=== PATIENT | female | born 1960 | race Caucasian/White ===

== ENCOUNTER → 2019-03-13 | Outpatient (CLI) | payer BC ==
--- NOTE | 2019-03-13 11:53 | MM ---
Reason for exam: clinical finding. Last mammogram was performed 17 years and 4 months ago. History: Patient is postmenopausal. Family history of breast cancer in 2 maternal aunts. Benign stereotactic core biopsy of the right breast, October 10, 1998. Benign excisional biopsy of the right breast, June 07, 1998. Cyst aspiration of the left breast, 1998. Core biopsy of the right breast. Indicated problem(s): lump or thickening in the left breast. Physical Findings: Nurse Summary: 1 x 1cm nodule in the left breast at 9 o'clock and a 3 x 3cm nodule in the left breast at 12 o'clock (nurse ts). MG 3D Diag Mammo W/Cad [facility]O Bilateral CC, MLO, and LM view(s) were taken. Prior study comparison: November 21, 2001, bilateral diagnostic mammogram. September 16, 1998, right breast diagnostic mammogram. The breast tissue is heterogeneously dense. This may lower the sensitivity of mammography. Numerous bilateral predominantly layering calcifications are likely benign. 6 month bilateral follow up advised. No discrete abnormality at the sites of palpable abnormality left breast. These results were verbally communicated with the patient and result sheet given to the patient on 03/13/19. ASSESSMENT: Incomplete: need additional imaging evaluation, BI-RAD 0 RECOMMENDATION: Ultrasound of the left breast. Manage patient on a clinical basis.
--- NOTE | 2019-03-13 11:55 | USB ---
Reason for exam: additional evaluation requested from abnormal screening. History: Patient is postmenopausal. Family history of breast cancer in 2 maternal aunts. Benign stereotactic core biopsy of the right breast, October 10, 1998. Benign excisional biopsy of the right breast, June 07, 1998. Cyst aspiration of the left breast, 1998. Core biopsy of the right breast. US Breast Limited LT Left limited breast ultrasound including focal area of concern, retroareolar and axilla demonstrates a 3.3 x 1.0 x 2.8cm oval, cystic lesion at 9 o'clock BB, a 1.0 x 0.7 x 0.8cm oval, cystic lesion at 9 o'clock, a 0.7 x 0.5 x 0.8cm oval, cystic lesion at 11 o'clock and a 2.5 x 1.6 x 2.1cm oval, cystic lesion at 12 o'clock BB. These results were verbally communicated with the patient and result sheet given to the patient on 03/13/19. ASSESSMENT: Benign, BI-RAD 2 RECOMMENDATION: Follow-up diagnostic mammogram of both breasts in 6 months.
== END | disposition home or self-care (01) ==
LOC: RADMAMWWP 09:08
PROVIDERS: ATTEND Pediatrics
DX: R92.8 Other abnormal and inconclusive findings on diagnostic imaging of breast (principal); N63.20 Unspecified lump in the left breast, unspecified quadrant
CPT/HCPCS: 77062; 77066

== ENCOUNTER → 2020-01-01 | Outpatient (CLI) | payer BC ==
--- NOTE | 2020-01-01 11:49 | MM ---
Reason for exam: follow-up at short interval from prior study. Last mammogram was performed 10 months ago. History: Patient is postmenopausal. Family history of breast cancer in 2 maternal aunts. Benign stereotactic core biopsy of the right breast, October 10, 1998. Benign excisional biopsy of the right breast, June 07, 1998. Cyst aspiration of the left breast, 1998. Core biopsy of the right breast. Physical Findings: Nurse Summary: 2 x 2cm nodule in the left breast at 12 o'clock and a 2 x 1cm nodule in the left breast at 9 o'clock (nurse ts). MG 3D Diag Mammo W/Cad [facility]ENC[facility]O Bilateral CC, MLO, and XCCL view(s) were taken. Prior study comparison: March 13, 2019, bilateral MG 3d diag mammo w/cad [facility]. The breast tissue is heterogeneously dense. This may lower the sensitivity of mammography. Diffuse calcifications. There is chronic nodularity bilaterally. These results were verbally communicated with the patient and result sheet given to the patient on 01/01/20. ASSESSMENT: Benign, BI-RAD 2 RECOMMENDATION: Routine screening mammogram of both breasts in 2 months. Back on schedule for February 2020. Manage patient on a clinical basis.
== END | disposition home or self-care (01) ==
LOC: RADMAMWWP 09:47
PROVIDERS: ATTEND Pediatrics
DX: R92.8 Other abnormal and inconclusive findings on diagnostic imaging of breast (principal)
CPT/HCPCS: 77062; 77066

== ENCOUNTER → 2021-01-10 | Outpatient (CLI) | payer BC ==
--- NOTE | 2021-01-14 10:42 | MM ---
Reason for exam: screening (asymptomatic). Last mammogram was performed 1 year ago. History: Patient is postmenopausal. Family history of breast cancer in maternal aunt at age 60 and breast cancer in paternal aunt at age 60. Benign stereotactic core biopsy of the right breast, October 10, 1998. Benign excisional biopsy of the right breast, June 07, 1998. Cyst aspiration of the left breast, 1998. Core biopsy of the right breast. Physical Findings: A clinical breast exam by your physician is recommended on an annual basis and results should be correlated with mammographic findings. MG 3D Screening Mammo W/Cad Bilateral CC and MLO view(s) were taken. Prior study comparison: January 01, 2020, bilateral MG 3d diag mammo w/cad [facility]. March 13, 2019, bilateral MG 3d diag mammo w/cad [facility]. The breast tissue is extremely dense which could obscure a lesion on mammography. Regional, diffuse and grouped calcifications are present bilaterally. More tightly clustered central inner right CC view and posterior inferior left MLO view. Magnification views recommended. Sampling may be needed. ASSESSMENT: Incomplete: need additional imaging evaluation, BI-RAD 0 RECOMMENDATION: Special view mammogram of both breasts. (magnification) [facility] will attempt to contact patient to return for supplemental views.
== END | disposition home or self-care (01) ==
LOC: RADMAMWWP 13:51
PROVIDERS: ATTEND Pediatrics
DX: Z12.31 Encounter for screening mammogram for malignant neoplasm of breast (principal)
CPT/HCPCS: 77063; 77067

== ENCOUNTER → 2021-01-21 | Outpatient (CLI) | payer BC ==
--- NOTE | 2021-01-22 08:16 | MM ---
Reason for exam: additional evaluation requested from abnormal screening. Last mammogram was performed less than 1 month ago. History: Patient is postmenopausal. Family history of breast cancer in maternal aunt at age 60 and breast cancer in paternal aunt at age 60. Benign stereotactic core biopsy of the right breast, October 10, 1998. Benign excisional biopsy of the right breast, June 07, 1998. Cyst aspiration of the left breast, 1998. Core biopsy of the right breast. Physical Findings: Nurse Summary: 2cm nodule in the left breast at 12 o'clock nipple and 9 o'clock (nurse dw). MG 3D Work Up W/Cad [facility]O Bilateral CC and MLO view(s) were taken. Prior study comparison: January 10, 2021, bilateral MG 3d screening mammo w/cad. January 01, 2020, bilateral MG 3d diag mammo w/cad [facility]. The breast tissue is heterogeneously dense. This may lower the sensitivity of mammography. Finding: There are increased, fine, intermediate concern, suspicious grouped/clustered calcifications in the lower inner quadrant, middle position of the right breast 4cm from the nipple. There are suspicious increased calcifications in the left upper inner quadrant, posterior position, 5cm from the nipple. New finding since January 10, 2021 and January 01, 2020. These results were verbally communicated with the patient and result sheet given to the patient on 01/21/21. ASSESSMENT: Suspicious, BI-RAD 4 RECOMMENDATION: Stereotactic core biopsy of both breasts. (x 2) Called Dr. Oliva's office with mammographic findings and has scheduled an appointment for the patient for 03/12/20 at 4:[address] Santos. Biopsy scheduled for 02/17/21 at 9:30. PRELIMINARY REPORT CALLED AND FAXED TO DR. SANTOS ON 01/21/21.
--- NOTE | 2021-01-22 08:23 | USB ---
Reason for exam: additional evaluation requested from abnormal screening. History: Patient is postmenopausal. Family history of breast cancer in maternal aunt at age 60 and breast cancer in paternal aunt at age 60. Benign stereotactic core biopsy of the right breast, October 10, 1998. Benign excisional biopsy of the right breast, June 07, 1998. Cyst aspiration of the left breast, 1998. Core biopsy of the right breast. US Breast Workup Limited [facility] Right limited breast ultrasound including focal area of concern, retroareolar and axilla demonstrates no cystic or solid lesion seen. Left limited breast ultrasound including focal area of concern, retroareolar and axilla demonstrates a 1.5 x 1.2 x 0.7cm mixed lesion at 9 o'clock and a 1.2 x 1.2 x 0.8cm mixed lesion at 12 o'clock, cyst versus other etiology. These results were verbally communicated with the patient and result sheet given to the patient on 01/21/21. ASSESSMENT: Probably benign, BI-RAD 3 RECOMMENDATION: Ultrasound of the left breast in 6 months. (x 2) Called Dr. Oliva's office with mammographic findings and has scheduled an appointment for the patient for 03/12/20 at 4:[address] Santos. Biopsy scheduled for 02/17/21 at 9:30. PRELIMINARY REPORT CALLED AND FAXED TO DR. SANTOS ON 01/21/21.
== END | disposition home or self-care (01) ==
LOC: RADMAMWWP 13:53
PROVIDERS: ATTEND Pediatrics
DX: N64.89 Other specified disorders of breast (principal); R92.1 Mammographic calcification found on diagnostic imaging of breast; Z80.3 Family history of malignant neoplasm of breast; Z78.0 Asymptomatic menopausal state
CPT/HCPCS: 77062; 77066

== ENCOUNTER → 2021-02-17 | Day surgery (SDC) | payer BC ==
[2021-02-17 09:27] VITALS: BP 145/81; PULSE 75; RESP 16; TEMP 98.2
--- NOTE | 2021-02-17 14:42 | MM ---
EXAMINATION TYPE: MG stereo VAD BX LT DATE OF EXAM: 02/17/2021 COMPARISON: 01/10/2021 left breast: CLINICAL HISTORY: Abnormal mammogram, calcifications TECHNIQUE: Stereotactic guided core biopsy of the bilateral breasts. FINDINGS: The procedure of stereotactic guided core biopsy was explained to the patient. Benefits, alternatives, and risks were discussed. An informed consent was then obtained. Discussion included clip placement. We were unable to determine if Karlos was present within the surgical clip and the patient deferred the surgical clip placement. Left breast: Inferior approach was utilized. The skin was cleansed. The skin and deeper breast tissue was anesthetized with 1% lidocaine. The deeper breast tissue was anesthetized with 1% lidocaine with epinephrine. 5 core samples were obtained. The biopsy site is away from the targeted area. These calcifications do not reflect the intended target. Final recommendations are pending pathology results of this biopsy. A new set up was performed. Right breast: Inferior approach was utilized. The skin was cleansed. The skin and deeper breast tissue was anesthetized with 1% lidocaine. The deeper breast tissue was anesthetized with 1% lidocaine with epinephrine. 5 core samples were obtained. The biopsy site appears to correspond to the calcifications localized from the prior examination. Specimens: Left breast: The left breast specimen contains calcifications. Right breast: Right breast specimen contains calcifications. IMPRESSION: 1. Successful right breast calcification biopsy. 2. Biopsy of left breast is away from the intended calcifications. Reevaluation following pathology review is recommended. Rebiopsy may be required. Pathology Results: High Risk A. LEFT BREAST, STEREOTACTIC NEEDLE CORE BIOPSY: Focal atypical ductal hyperplasia (ADH). Background fibrocystic changes including moderate usual type ductal hyperplasia, columnar cell change/columnar cell hyperplasia and calcifications. B. RIGHT BREAST, STEREOTACTIC CORE BIOPSY: Intraductal papilloma and background fibrocystic changes including moderate usual type ductal hyperplasia, columnar cell change/columnar cell hyperplasia and calcifications. Recommendation Consider open biopsy left. Consider open biopsy right. Consider re-biopsy target/original lesion on left. MTDD
== END ==
LOC: RADMAMWWP 09:00
PROVIDERS: ATTEND Surgery
DX: R92.8 Other abnormal and inconclusive findings on diagnostic imaging of breast (principal); N60.12 Diffuse cystic mastopathy of left breast; N62 Hypertrophy of breast; N60.11 Diffuse cystic mastopathy of right breast; R92.1 Mammographic calcification found on diagnostic imaging of breast
CPT/HCPCS: 88305; 19081; 19082; J2001

== ENCOUNTER 2021-03-20 09:42 | Day surgery (SDC) | payer BC ==
[2021-03-14 14:33] VITALS: BMI 23.6
[~2021-03-20 09:42] MED LIST: DEXAMETHASONE SOD PHOSPHATE 4 MG/ML 1 ML VIAL IV ONE; HYDROmorphone 0.5 MG/0.5 ML SYRINGE IVP PRN; LACTATED RINGERS 1,000 ML IV SCH; MIDAZOLAM 2 MG/2 ML VIAL IV PRN; ONDANSETRON 4 MG/2 ML VIAL IVP ONE; SCOPOLAMINE 1.5MG/72HR PATCH TRANSDERM ONE
[2021-03-20] MEDS ORDERED: ALPRAZolam 0.25 MG TAB ONE (10:49)
[2021-03-20] MEDS ORDERED: ALPRAZolam 0.25 MG TAB PO ONE (10:53)
[2021-03-20] MEDS ORDERED: LIDOCAINE 1% (10MG/ML) FOR IV START INTRADERMA ONE (11:00)
[2021-03-20] MEDS ORDERED: LIDOCAINE 1% INJ 10MG/ML (20 ML MDV) SQ ONE (12:17)
[2021-03-20] MEDS ORDERED: HEPARIN SODIUM,PORCINE/PF 5,000 UNIT/0.5 ML SYRINGE SQ ONE (14:12)
[2021-03-20] MEDS ORDERED: PHENYLEPHRINE-0.9% NACL SYG 1,000 MCG/10 ML SYRINGE ONE (14:15)
[2021-03-20] MEDS ORDERED: LIDOCAINE 1% INJ 10MG/ML (20 ML MDV) ONE (14:15)
[2021-03-20] MEDS ORDERED: PROPOFOL 10 MG/ML 20 ML VIAL IV ONE (14:15)
[2021-03-20] MEDS ORDERED: fentaNYL (PF) 50 MCG/ML 2 ML AMP ONE (14:15)
[2021-03-20] MEDS ORDERED: KETOROLAC 15 MG/ML 1 ML VIAL ONE (14:15)
[2021-03-20] MEDS ORDERED: MIDAZOLAM 2 MG/2 ML VIAL ONE (14:15)
[2021-03-20] MEDS ORDERED: HEPARIN SODIUM,PORCINE 5,000 UNIT/ML 1 ML VIAL SQ ONE (14:18)
--- NOTE | 2021-03-20 14:19 | P.HPADDEND ---
H&P Addendum H&P Addendum Date: 03/20/21 Patient here today for bilateral wire localization biopsy. Case was discussed with radiology this morning. Patient was able to have both recent biopsy sites localized and the atypical calcifications site localized as well on the left- hand side. We'll proceed with right breast wire localization biopsy, left breast wire localization biopsy two sites at this time.
[2021-03-20] MEDS ORDERED: BUPIVACAINE (PF) 0.25% 30 ML VIAL SQ ONE ×2 (14:41)
[2021-03-20] MEDS ORDERED: HYDROcodone/APAP 5-325MG 1 EACH TAB PO PRN (15:32)
[2021-03-20] MEDS ORDERED: NALOXONE 0.4 MG/ML 1 ML VIAL IV PRN (15:32)
--- NOTE | 2021-03-20 15:40 | P.OP ---
Date of Procedure: 03/20/21 Procedure(s) Performed: PREOPERATIVE DIAGNOSIS: Abnormal bilateral mammogram POSTOPERATIVE DIAGNOSIS: Same PROCEDURE: Bilateral Breast wire localization biopsy, 1 right 2 on left SURGEON: Danielle EBL: Minimal ANESTHESIA: General COMPLICATIONS: None OPERATIVE PROCEDURE: Patient was placed on the operating room table in the supine position. The patient's breasts were prepped and draped in usual sterile fashion. The right side was first addressed. The patient had a scar along the areola medially. We re-incised that scar. Dissection through the subcutaneous tissues took place using electrocautery. The wire was identified and brought out through this site. The breast tissue around the tip of the wire was fully excised using electrocautery. The specimen was sent for specimen radiogram. The abnormality was felt to be present within the specimen. The subcutaneous tissues were inspected. No bleeding was seen. The subcutaneous tissues were closed using 2-0 and 3-0 Vicryl sutures. The skin was closed using interrupted 4-0 Monocryl sutures. The left side was then addressed. Again a periareolar incision was made between 7 and 12:00. Dissection first took place medially. The medial wire that was localizing calcifications labeled #1 wire was brought out through the operative site. The breast tissue around the tip of the wire was excised. Specimen radiograph was again performed and abnormality was felt to be present within the specimen. The lateral #2 wire was then addressed. Subcutaneous tissues were dissected until the wire was identified and brought out through the operative site. Again the breast tissue around the tip of the wire was excised and sent to x-ray. The specimen radiograph demonstrated what appeared to represent the abnormality within the specimen. The subcutaneous tissues were inspected. No bleeding was seen. The subcutaneous tissues were closed using 2-0 and 3-0 Vicryl sutures. The skin was closed using interrupted 4-0 Monocryl sutures. Skin glue and sterile dressings were applied. DISPOSITION: Stable to recovery room
[2021-03-20 15:46] VITALS: TEMP 97
[2021-03-20 17:29] VITALS: RESP 16
[2021-03-20] MEDS ORDERED: HYDROcodone/APAP 5-325MG 1 EACH TAB PO ONE (17:35)
--- NOTE | 2021-03-20 17:40 | MM ---
EXAMINATION TYPE: MG pre op needle loc LT DATE OF EXAM: 03/20/2021 COMPARISON: Post procedure mammograms from 02/17/2021, diagnostic images from 01/21/2021, and screening images from 01/10/2021 as well as review of 01/01/2020. CLINICAL HISTORY: Two high risk lesions by biopsy and one suspicious group of calcifications. TECHNIQUE: Needle localization with wire placement and surgical excision of area of concern in the bilateral breasts. Images are reviewed and planning performed for localization. The procedure of needle localization with wire placement for surgical excision was explained to the patient. Risk, benefits, and alternatives were discussed. An informed consent was then obtained. A timeout was performed. The overlying skin was prepped in usual sterile fashion. Lidocaine 1% was used as anesthetic into the skin and subcutaneous tissue up to the level of area of concern within the right breast. A 7 cm needle was used. This was placed via a medial approach under mammographic guidance. Subsequent 90 degrees mammogram show the needle to be in satisfactory position relative to the targeted area. The wire was placed through the needle and the needle was withdrawn. The wire was fixed to patient's skin. Images were marked for surgeon. With a separate set up the overlying skin was prepped in usual sterile fashion. Lidocaine 1% was used as anesthetic into the skin and subcutaneous tissue up to the level of area of concern within the right breast. A 7 cm needle was used. This was placed via a medial approach under mammographic guidance. Subsequent 90 degrees mammogram show the needle to be in satisfactory position relative to the targeted area. The wire was placed through the needle and the needle was withdrawn. The wire was fixed to patient's skin. Images were marked for surgeon. This area was labeled #1, calcifications. The overlying skin was prepped in usual sterile fashion. Lidocaine 1% was used as anesthetic into the skin and subcutaneous tissue up to the level of area of concern within the right breast. A 7 cm needle was used. This was placed via a medial approach under mammographic guidance. Initial placement was felt to be suboptimal and patient was repositioned and anesthetized for placement of the needle. Subsequent 90 degrees mammogram show the needle to be in satisfactory position relative to the targeted area. The wire was placed through the needle and the needle was withdrawn. The wire was fixed to patient's skin. Images were marked for surgeon. This area was labeled #2. The patient tolerated the procedure well without any immediate complication. Specimen: 3 specimens were returned with corresponding labels to the biopsy sites. Right breast: The wire and the targeted region appear to be identified within the specimen mammogram. Couple small adjacent calcifications appear to be present. Left breast #1 Calcifications: The wire and the targeted calcifications appear to be identified within the mammogram two-piece specimen. Left breast #2: The wire and the targeted region appear to be identified within the mammogram specimen. Some calcifications are present. IMPRESSION: 1. Successful wire localization and excision, 3 locations. Two within the left breast, one within the right breast. Recommendations: 1. Recommendations are pending pathology results. Pathology Results: Benign A. RIGHT BREAST, NEEDLE LOCALIZATION EXCISION: Intraductal papilloma, margins negative. Fibrocystic changes including moderate usual type ductal hyperplasia and focal fibroadenomatoid hyperplasia. B. LEFT BREAST MEDIAL, NEEDLE LOCALIZATION EXCISION: Intraductal papilloma, margins negative. Background fibrocystic changes including moderate usual type ductal hyperplasia and previous biopsy site. C. LEFT BREAST LATERAL, NEEDLE LOCALIZATION EXCISION: Benign breast with fibrocystic changes including moderate usual type ductal hyperplasia and microcalcifications. Recommendation Follow up mammogram of both breasts in 6 months. PATO
[2021-03-20 17:46] VITALS: PULSE 72
[2021-03-20 18:01] VITALS: BP 118/78
== END 2021-03-20 18:13 | disposition home or self-care (01) ==
LOC: OR 09:42
PROVIDERS: ATTEND Surgery
DX: D24.1 Benign neoplasm of right breast (principal); D24.2 Benign neoplasm of left breast; N62 Hypertrophy of breast; Z79.899 Other long term (current) drug therapy; Z90.49 Acquired absence of other specified parts of digestive tract; Z98.890 Other specified postprocedural states; Z82.49 Family history of ischemic heart disease and other diseases of the circulatory system; Z80.3 Family history of malignant neoplasm of breast; Z80.0 Family history of malignant neoplasm of digestive organs; Z83.42 Family history of familial hypercholesterolemia; E78.5 Hyperlipidemia, unspecified; Z87.19 Personal history of other diseases of the digestive system; Z91.048 Other nonmedicinal substance allergy status
CPT/HCPCS: 19125; 19126; 88307; 76098 ×2; 19281; 19282 ×2; C1819; J2250; J1644; J1100; J0690; J2405; J2001; J3010; J1885; J2370; J2704

== ENCOUNTER → 2022-01-12 | Outpatient (CLI) | payer BC ==
--- NOTE | 2022-01-12 13:16 | MM ---
Reason for Exam: Follow-up at short interval from prior study. Last screening mammogram was performed 12 month(s) ago. Patient History: Menarche at age 9. First Full-Term at age 15. Postmenopausal. Core Biopsy on the Right side. 1998, Cyst Aspiration on the Left side. 03/20/2021, Benign Core Biopsy on the left side. 03/20/2021, Benign Core Biopsy on the left side. 03/20/2021, Benign Core Biopsy on the right side. 02/17/2021, High risk Core Biopsy on the left side. 02/17/2021, High risk Core Biopsy on the right side. 06/07/1998, Benign Excisional Biopsy on the right side. 10/10/1998, Benign Stereotactic Core Biopsy on the right side. Paternal aunt had breast cancer, age 60. Maternal aunt (Janel) had breast cancer, age 60. Maternal aunt (Joce) had breast cancer, age 75. Risk Values: Debra 5 year model risk: 1.9%. NCI Lifetime model risk: 7.9%. Prior Study Comparison: 03/13/2019 Bilateral Diagnostic Mammogram, [facility]. 01/10/2021 Bilateral Screening Mammogram, [facility]. 01/21/2021 Bilateral Diagnostic Mammogram, [facility]. Tissue Density: The breast tissue is heterogeneously dense. This may lower the sensitivity of mammography. Findings: Analyzed By CAD. Stable benign calcifications seen bilaterally. No evidence for mass or distortion. Overall Assessment: Benign, BI-RAD 2 Management: Screening Mammogram of both breasts in 1 year. A clinical breast exam by your physician is recommended on an annual basis and results should be correlated with mammographic findings. This exam should not preclude additional follow-up of suspicious palpable abnormalities. Results were given to the patient verbally at the time of exam. Electronically signed and approved by: Sloan Bower M.D. Radiologis
== END | disposition home or self-care (01) ==
LOC: RADMAMWWP 12:29
PROVIDERS: ATTEND Surgery
DX: R92.8 Other abnormal and inconclusive findings on diagnostic imaging of breast (principal); Z78.0 Asymptomatic menopausal state; Z80.3 Family history of malignant neoplasm of breast
CPT/HCPCS: 77062; 77066

== ENCOUNTER → 2023-01-15 | Outpatient (CLI) | payer BC ==
--- NOTE | 2023-01-18 08:02 | MM ---
Reason for Exam: Screening (asymptomatic). Last screening mammogram was performed 12 month(s) ago. Patient History: Menarche at age 9. First Full-Term at age 15. Postmenopausal. Hormonal Contraceptives for 5 years from age 17 until age 22. Core Biopsy on the Right side. 1998, Cyst Aspiration on the Left side. 03/20/2021, Benign Core Biopsy on the left side. 03/20/2021, Benign Core Biopsy on the left side. 03/20/2021, Benign Core Biopsy on the right side. 02/17/2021, High risk Core Biopsy on the left side. 02/17/2021, High risk Core Biopsy on the right side. 06/07/1998, Benign Excisional Biopsy on the right side. 10/10/1998, Benign Stereotactic Core Biopsy on the right side. Paternal aunt had breast cancer, age 60. Maternal aunt (Janel) had breast cancer, age 60. Maternal aunt (Joce) had breast cancer, age 75. Risk Values: Debra 5 year model risk: 1.9%. NCI Lifetime model risk: 7.7%. Prior Study Comparison: 01/10/2021 Bilateral Screening Mammogram, [facility]. 01/21/2021 Bilateral Diagnostic Mammogram, [facility]. 01/12/2022 Bilateral MG 3D diag mammo w/cad [facility], [facility]. Tissue Density: The breast tissue is heterogeneously dense. This may lower the sensitivity of mammography. Findings: Analyzed By CAD. There is no suspicious group of microcalcifications or new suspicious mass. Benign-appearing calcifications bilaterally. Overall Assessment: Negative, BI-RAD 1 Management: Screening Mammogram of both breasts in [address] [facility] will attempt to contact patient to return for supplemental views and ultrasound if indicated. Patient should continue monthly self-breast exams. A clinical breast exam by your physician is recommended on an annual basis. This exam should not preclude additional follow-up of suspicious palpable abnormalities. Note on Debra scores and lifetime risk: 1. A Debra score greater than 3% is considered moderate risk. If this is the case, consider specialist referral to assess eligibility for a risk reducing agent. 2. If overall lifetime risk for the development of breast cancer is 20% or higher, the patient may qualify for future screening with alternating mammogram and breast MRI. Electronically signed and approved by: Jesus Scott DO
== END | disposition home or self-care (01) ==
LOC: RADMAMWWP 12:42
PROVIDERS: ATTEND Pediatrics
DX: Z12.31 Encounter for screening mammogram for malignant neoplasm of breast (principal); Z78.0 Asymptomatic menopausal state; Z80.3 Family history of malignant neoplasm of breast
CPT/HCPCS: 77063; 77067